=== PATIENT | male | born 1955 ===

== ENCOUNTER 2018-04-09 18:01 | Emergency (ER) | payer SELFPAY ==
[2018-04-09 18:36] VITALS: O2SAT 98
[2018-04-09] MEDS ORDERED: Tdap Vaccine 0.5 ml Vial (10-64 yrs) IM ONE ×2 (19:12→19:22)
[2018-04-09] MEDS ORDERED: ceFAZolin 1 gm in NS 1 GM/100 ML BAG IVPB ONE (19:26)
[2018-04-09] MEDS ORDERED: Lidocaine 1% Inj (20ml) INFIL ONE (19:43)
[2018-04-09] MEDS ORDERED: Lidocaine Hydrochloride 5 ML INJ ONE ×2 (20:02)
--- NOTE | 2018-04-09 20:32 | C.PDOC ---
History Of Present Illness 62 y/o male with no PMHx, presents to the ED for evaluation of left thumb injury sustained today. Patient states he was using an electric table saw which slipped, slicing through left thumb. Last tetanus unknown. Patient is able to bend the digit. Time Seen by Provider: 04/09/18 19:02 Chief Complaint (Nursing): Abnormal Skin Integrity History Per: Patient History/Exam Limitations: no limitations Onset/Duration Of Symptoms: Hrs Current Symptoms Are (Timing): Still Present Past Medical History Reviewed: Historical Data, Nursing Documentation, Vital Signs Vital Signs: Last Vital Signs Temp 98.2 F 04/09/18 18:35 Pulse 69 04/09/18 18:35 Resp 20 04/09/18 18:35 BP 148/77 04/09/18 18:35 Pulse Ox 98 04/09/18 18:35 - Medical History PMH: No Chronic Diseases Surgical History: No Surg Hx Family History: States: Unknown Family Hx - Social History Hx Tobacco Use: No Hx Alcohol Use: No Hx Substance Use: No - Immunization History Hx Tetanus Toxoid Vaccination: No Hx Influenza Vaccination: No Hx Pneumococcal Vaccination: No Review Of Systems Gastrointestinal: Negative for: Nausea Musculoskeletal: Positive for: Hand Pain (left thumb pain) Skin: Positive for: Lesions (left thumb laceration). Negative for: Rash Neurological: Negative for: Weakness, Numbness Physical Exam - Physical Exam Appears: Non-toxic, No Acute Distress Skin: Warm, Dry, No Rash, Other (laceration diagonal through nail bed, with missing piece of nail, missing tissue at tip of finger. jagged irregular laceration extends distally on thumb. ) Head: Atraumatic, Normacephalic Eye(s): bilateral: PERRL, EOMI Neck: Supple Extremity: Normal ROM (and able to flex and extend the left 1st digit), Capillary Refill (< 2 sec), Other (Left thumb is missing tissue at the top, with 3 cm vertical laceration down the side, with mild active bleeding) Pulses: Left Radial: Normal, Right Radial: Normal Neurological/Psych: Oriented x3, Normal Motor, Normal Sensation (intact sensation to light touch) ED Course And Treatment O2 Sat by Pulse Oximetry: 98 (RA) Pulse Ox Interpretation: Normal Laceration - Laceration Repair left thumb Wound Length (In cm): 3 Description Of Wound: Irregular, Stellate, Contused Tissue Wound Cleansed With: Betadine, Sterile Saline Anesthesia: Lidocaine 1% Wound Examination: Irrigated With Saline, No FB With Wound Exploration Wound Closure: Suture (4 sutures of 4-0 vicryl, few areas tacked loosely together) Suture Technique And Material Used: Vicryl Wound Complexity: Simple Medical Decision Making Medical Decision Making: Impression: Laceration, 1st digit Plan: X-ray taken of left hand. Tetanus booster given. Administered 975 mg PO Tylenol and 1gm IV Ancef. Case discussed with hand on-call, Dr. Fortune, who recommends good wash out of thumb, loose approximation sutures, xeroform dressing and splint and will see pt in his office on Saturday. pt made aware of planm will d/c with antibiotics and analgesic. Disposition - Disposition Referrals: Hiram Fortune MD [Staff Provider] - Disposition: HOME/ ROUTINE Disposition Time: 21:58 Condition: GOOD Additional Instructions: Mantenga el pulgar maritza cubierto hasta sd a mano el especialista Tong el viernes. Debes llamar a osborne oficina maana, jueves, y avisarles que te vieron en la chelsy de emergencias el mircoles y el Dr. Fortune quiere que vengas el viernes. [place] Tylenol para el dolor. [place] los antibiticos segn lo prescrito. Regrese a la chelsy de emergencias para cualquier sangrado. peor dolor fiebre u otras inquietudes. Prescriptions: Acetaminophen [Tylenol 325mg tab] 650 mg PO Q6 #40 tab Cephalexin [Keflex] 500 mg PO Q6 #28 capsule Forms: Gen Discharge Inst Norwegian, [employer] (Norwegian), Work Excuse Print Language: ESTONIAN - Clinical Impression Clinical Impression: Laceration of left thumb with damage to nail, Open fracture of tuft of distal phalanx of left thumb - PA / MILK TESTER / Resident Statement MD/DO has reviewed & agrees with the documentation as recorded. - Scribe Statement The provider has reviewed the documentation as recorded by the Dominickibkishore Thapa All medical record entries made by the Scribe were at my direction and personally dictated by me. I have reviewed the chart and agree that the record accurately reflects my personal performance of the history, physical exam, medical decision making, and the department course for this patient. I have also personally directed, reviewed, and agree with the discharge instructions and disposition.
[2018-04-09 21:47] VITALS: BP 132/73; PULSE 61; RESP 18; TEMP 98
--- NOTE | 2018-04-10 08:36 | RAD ---
Date of service: 04/09/2018 PROCEDURE: Left Thumb radiographs. HISTORY: laceration, eval for fx COMPARISON: None. TECHNIQUE: AP radiograph of the left hand, as well as spot oblique and lateral images of thumb were obtained. FINDINGS: LEFT THUMB: Soft tissue laceration defects thumb tuft and mostly volar aspect. Laceration with tuft osseous fracture extension multiple ossific fragments displaced in the altered soft tissues radial aspect most notably. JOINTS: Normal. SOFT TISSUES: Normal. OTHER FINDINGS: None. IMPRESSION: The lacerated injury affects the soft tissues and the radial aspect of the thumb's distal tuft here the ossified lacerated injury fractured fragments are displaced into the radial soft tissues. No dislocation.
== END 2018-04-09 22:06 | disposition home or self-care (01) ==
LOC: C.ER 18:01
DX: S62.522B Displaced fracture of distal phalanx of left thumb, initial encounter for open fracture (principal); W29.8XXA Contact with other powered hand tools and household machinery, initial encounter
CPT/HCPCS: 12002; 73140; 90471; 90715; 96365; 99285; J0690